=== PATIENT | female | born 1995 | race African-American/Black ===

== ENCOUNTER 2019-08-11 05:32 | Emergency (ER) | payer BC ==
[~2019-08-11] VITALS: Ht 160 cm; Wt 91.1 kg
--- NOTE | 2019-08-11 05:37 | PHYS DOC ---
Past History Past Medical History: Constipation, UTI General Adult HPI: HPI: ".. I ve been hurting since Wednesday...here Lt...it started a little high..but it more low...now...but the pain is much worse this morning...it win in my back... Patient is a 23 year old female who presents with above hx and complaints of Lt.flank and lower abd.pain. Patient denies any intake of bad food. Patient denies any trauma. Patient has a history of kidney stones were soft but there is some family history of kidney stones with parents. Patient has had history of urinary tract infections in the past. Patient has had a history of some episodes of constipation. Patient denies any sexual activity. Patient denies any history of vaginal discharge. Patient states she has had normal periods. Patient denies any history of ovarian cysts. No recent travel. No severe ill contacts. No ice immunosuppression. Patient does work in [employer] however denies any injury at work. Review of Systems: Review of Systems: Constitutional: Denies fever or chills Eyes: Denies change in visual acuity HENT: Denies nasal congestion or sore throat Respiratory: Denies cough or shortness of breath Cardiovascular: Denies chest pain or edema GI: Complains of left flank abdominal pain, nausea,. Denies vomiting, bloody stools or diarrhea : Denies dysuria Musculoskeletal: Denies back pain or joint pain Integument: Denies rash Neurologic: Denies headache, focal weakness or sensory changes Endocrine: Denies polyuria or polydipsia Lymphatic: Denies swollen glands Psychiatric: Denies depression or anxiety Heart Score: Risk Factors: Risk Factors: DM, Current or recent (<one month) smoker, HTN, HLP, family history of CAD, obesity. Risk Scores: Score 0 - 3: 2.5% MACE over next 6 weeks - Discharge Home Score 4 - 6: 20.3% MACE over next 6 weeks - Admit for Clinical Observation Score 7 - 10: 72.7% MACE over next 6 weeks - Early Invasive Strategies Family History: Family History: History of renal stones in parents. Current Medications: Current Meds: See nursing for home meds Allergies: Allergies: No known drug allergies Physical Exam: PE: Constitutional: Moderate acute distress, non-toxic appearance. [] HENT: Normocephalic, atraumatic, bilateral external ears normal, oropharynx moist, no oral exudates, nose normal. [] Eyes: PERRLA, EOMI, conjunctiva normal, no discharge. [] Neck: Normal range of motion, no tenderness, supple, no stridor. [] Cardiovascular:Heart rate regular rhythm, no murmur [] Lungs & Thorax: Bilateral breath sounds equal apex on auscultation . Abdomen: Bowel sounds decreased,, soft, left flank and mid abdomen tenderness, no masses, no pulsatile masses. Moderate distention. Patient declines rectal or pelvic exam at this time. Very mild rebound to left mid abdomen area. Obese. Skin: Warm, dry, no erythema, no rash. [] Back: No tenderness, left CVA tenderness. [] Extremities: No tenderness, no cyanosis, no clubbing, ROM intact, no edema. [] No psoas sign. Neurologic: Alert and oriented X 3, normal motor function, normal sensory function, no focal deficits noted. [] Psychologic: Affect anxious, judgement normal, mood normal. [] EKG: EKG: [] Radiology/Procedures: Radiology/Procedures: [][place] [address] IMAGING REPORT Signed PATIENT: CARLTON SYLVESTER I ACCOUNT: [id number] : 1995 LOCATION: ER AGE: 23 SEX: F EXAM STATUS: REG ER ORD. PHYSICIAN: MARILYN JOHNSTON MD REASON: pain PROCEDURE: ACUTE ABDOMEN SERIES Study: CR ACUTE ABDOMEN SERIES Indication: Pain. Comparison: None. Findings: Within normal limits cardiomediastinal silhouette and deacon. No lobar consolidation, pleural effusion or pneumothorax. Nonobstructive bowel gas pattern. Mild colonic stool burden. No free air seen under the diaphragm. Though not fully evaluated, no acute osseous abnormality is identified. Impression: No acute abnormality of the chest. Nonobstructive bowel gas pattern. Electronically signed by: KATELIN ARMENTA MD (08/11/2019 7:18 AM) [id number] DICTATED AND SIGNED BY: KATELIN ARMENTA MD DATE: 08/11/19 0718 CC: MARILYN JOHNSTON MD; KECIA ROSSI MD ~ Course & Med Decision Making: Course & Med Decision Making Pertinent Labs and Imaging studies reviewed. (See chart for details) Labs and x-rays pending at shift change. Noted on x-ray a large stool burden in the left colon. At 0730 hrs. patient reported marked improvement of her pain. Discussed options of further investigation of her left flank and abdomen pain. Will defer CT with contrast of abdomen at this time. Patient to stay on a clear fluid diet only. No milk products. If still having pain after passage of stool to return for further evaluation. Patient to follow-up primary care. Patient return if any concerns. Patient may take Tylenol and ibuprofen for pain. Patient reviewed ED work-up of her primary care. Impression: 1. Abdomen Pain- Lt. Mid Abdomen and Flank 2. Constipation 3. Mild anemia hemoglobin 11.3 4. Urine drug screen positive for methamphetamine [] Dragon Disclaimer: Dragon Disclaimer: This electronic medical record was generated, in whole or in part, using a voice recognition dictation system. Departure Departure: Disposition: 01 HOME/RESIDENCE PRIOR TO ADM Condition: STABLE Referrals: KECIA ROSSI MD (PCP) Dragon Disclaimer This chart was dictated in whole or in part using Voice Recognition software in a busy, high-work load, and often noisy Emergency Department environment. It may contain unintended and wholly unrecognized errors or omissions. Dragon Disclaimer This chart was dictated in whole or in part using Voice Recognition software in a busy, high-work load, and often noisy Emergency Department environment. It may contain unintended and wholly unrecognized errors or omissions. Dragon Disclaimer This chart was dictated in whole or in part using Voice Recognition software in a busy, high-work load, and often noisy Emergency Department environment. It may contain unintended and wholly unrecognized errors or omissions. MARILYN JOHNSTON MD Aug 11, 2019 05:37
[2019-08-11] MEDS ORDERED: MAGNESIUM HYDROXIDE 2,400 MG/30 ML ORAL.SUSP. PO ONE (06:00)
[2019-08-11 06:19] LABS: BARBITURATES NEG (NEG); BENZODIAZEPINES NEG (NEG); CANNABINOIDS NEG (NEG); COCAINE NEG (NEG); METHADONE NEG (NEG); OPIATES NEG (NEG); PHENCYCLIDINE NEG (NEG)
[2019-08-11 06:31] LABS: AMPHETAMINE/METHAMPHETAMINE POS (NEG)
[2019-08-11 06:36] LABS: BACTERIA,URINE FEW /HPF (0-FEW); BILIRUBIN,URINE NEG (NEG); CLARITY,URINE HAZY; COLOR,URINE YELLOW; GLUCOSE,URINE NEG (NEG); NITRITE,URINE NEG (NEG); RBC,URINE 0 /HPF (0-2); UROBILINOGEN,URINE 0.2 mg/dL (0.2 mg/dL)
[2019-08-11 06:37] LABS: AMORPHOUS SEDIMENT,UR PRESENT /HPF; SQUAMOUS EPITHELIAL CELL,UR MOD /LPF; YEAST,URINE PRESENT /HPF
[2019-08-11 06:45] LABS: BASO # 0.1 x10^3/uL (0.0-0.2); BASO % 1 % (0-3); EOS # 0.3 x10^3/uL (0.0-0.7); EOS % 3 % (0-3); HEMATOCRIT 39.1 % (36.0-47.0); HEMOGLOBIN 12.7 g/dL (12.0-15.5); LYMPH # 2.9 x10^3/uL (1.0-4.8); LYMPH % 25 % (24-48); MEAN CORPUSCULAR HEMOGLOBIN 26 pg (25-35); MEAN CORPUSCULAR HGB CONC 32 g/dL (31-37); MEAN CORPUSCULAR VOLUME 80 fL (79-100); MONO # 0.7 x10^3/uL (0.0-1.1); MONO % 6 % (0-9); NEUT # 7.7 x10^3uL (1.8-7.7); NEUT % 66 % (31-73); PLATELET COUNT 422 x10^3/uL (140-400); RED BLOOD COUNT 4.93 x10^6/uL (3.50-5.40); RED CELL DISTRIBUTION WIDTH 14.4 % (11.5-14.5); WHITE BLOOD COUNT 11.7 x10^3/uL (4.0-11.0)
[2019-08-11 06:51] LABS: CALCIUM 9.2 mg/dL (8.5-10.1); CREATININE 0.9 mg/dL (0.6-1.0); GFR 93.1; POTASSIUM 3.6 mmol/L (3.5-5.1)
[2019-08-11 06:57] LABS: ALBUMIN 3.5 g/dL (3.4-5.0); DIRECT BILIRUBIN 0.1 mg/dL (0.0-0.2); TOTAL BILIRUBIN 0.4 mg/dL (0.2-1.0); TOTAL PROTEIN 8.7 g/dL (6.4-8.2)
[2019-08-11] MEDS ORDERED: IV RINGERS SOLUTION,LACTATED 1,000 ML IV SCH (07:00)
[2019-08-11] MEDS ORDERED: FAMOTIDINE 20 MG/2 ML VIAL IVP ONE (07:00)
[2019-08-11] MEDS ORDERED: KETOROLAC 30 MG/ML VIAL. IVP ONE (07:00)
--- NOTE | 2019-08-11 07:20 | RAD ---
Study: CR ACUTE ABDOMEN SERIES Indication: Pain. Comparison: None. Findings: Within normal limits cardiomediastinal silhouette and deacon. No lobar consolidation, pleural effusion or pneumothorax. Nonobstructive bowel gas pattern. Mild colonic stool burden. No free air seen under the diaphragm. Though not fully evaluated, no acute osseous abnormality is identified. Impression: No acute abnormality of the chest. Nonobstructive bowel gas pattern. Electronically signed by: KATELIN ARMENTA MD (08/11/2019 7:18 AM) [id number]
[2019-08-11 07:54] VITALS: BP 122/61
== END 2019-08-11 07:57 | disposition home or self-care (01) ==
LOC: ER 05:32
DX: R10.32 Left lower quadrant pain (principal); K59.00 Constipation, unspecified; D64.9 Anemia, unspecified; F15.10 Other stimulant abuse, uncomplicated; Z87.440 Personal history of urinary (tract) infections; Z87.442 Personal history of urinary calculi
CPT/HCPCS: 36415; 74022; 80048; 80076; 80307; 81001; 81025; 83690; 85025; 85610; 85730; 96374; 96375; 99284; J1885; J3490; J7120

== ENCOUNTER 2020-01-17 12:57 | Emergency (ER) | payer BC, OTHER ==
[~2020-01-17] VITALS: Ht 160 cm; Wt 92.8 kg
[2020-01-17] MEDS ORDERED: KETOROLAC 60 MG/2 ML VIAL. IM ONE (14:45)
[2020-01-17] MEDS ORDERED: diazePAM 5 MG TABLET. PO ONE (14:45)
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
[2020-01-17] MEDS ORDERED: METH-38 PO (15:39)
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
[2020-01-17 16:03] VITALS: BP 119/71
[2020-01-18] MEDS ORDERED: HYDR-1179 PO (21:51)
== END 2020-01-17 16:03 | disposition home or self-care (01) ==
LOC: ER 12:57
DX: M54.5 Low back pain (principal); G89.11 Acute pain due to trauma; J45.909 Unspecified asthma, uncomplicated; G43.909 Migraine, unspecified, not intractable, without status migrainosus; Z87.440 Personal history of urinary (tract) infections; V43.62XA Car passenger injured in collision with other type car in traffic accident, initial encounter; Y93.89 Activity, other specified; Y92.488 Other paved roadways as the place of occurrence of the external cause; Y99.8 Other external cause status
CPT/HCPCS: 72100; 81025; 96372; 99285; J1885

== ENCOUNTER 2020-01-18 19:39 | Emergency (ER) | payer BC, OTHER ==
[~2020-01-18] VITALS: Ht 160 cm; Wt 94.4 kg
[~2020-01-18 19:39] MED LIST: METH-38 PO
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
[2020-01-18] MEDS ORDERED: ORPHENADRINE CITRATE 60 MG/2 ML VIAL. IM ONE (20:30)
[2020-01-18] MEDS ORDERED: KETOROLAC 60 MG/2 ML VIAL. IM ONE (20:30)
[2020-01-18] MEDS ORDERED: MORPHINE SULFATE 10 MG/ML SYRINGE. SQ ONE (20:30)
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
[2020-01-18] MEDS ORDERED: HYDR-1179 PO (21:51)
[2020-01-18 21:54] VITALS: BP 124/67
== END 2020-01-18 21:55 | disposition home or self-care (01) ==
LOC: ER 19:39
DX: S39.012A Strain of muscle, fascia and tendon of lower back, initial encounter (principal); S56.911A Strain of unspecified muscles, fascia and tendons at forearm level, right arm, initial encounter; S66.811A Strain of other specified muscles, fascia and tendons at wrist and hand level, right hand, initial encounter; J45.909 Unspecified asthma, uncomplicated; G43.909 Migraine, unspecified, not intractable, without status migrainosus; Z87.440 Personal history of urinary (tract) infections; V89.2XXA Person injured in unspecified motor-vehicle accident, traffic, initial encounter; Y93.89 Activity, other specified; Y92.89 Other specified places as the place of occurrence of the external cause; Y99.8 Other external cause status
CPT/HCPCS: 72131; 73080; 73090; 96372; 99284; J1885; J2270; J2360

== ENCOUNTER → 2020-03-21 | Outpatient (CLI) | payer OTHER, BC ==
[~2020-03-21] MED LIST changes: +HYDR-1179 PO
--- NOTE | 2020-03-21 18:06 | RAD ---
EXAM: Left forearm, 2 views. HISTORY: Pain. COMPARISON: None. FINDINGS: 2 views of the left forearm are obtained. There is no fracture, dislocation or subluxation. There is no lytic or sclerotic osseous lesion. There is no periosteal reaction. There is no elbow effusion. IMPRESSION: No acute osseous finding. Electronically signed by: Lashae Gomez MD (03/21/2020 6:02 PM) [facility]
== END ==
LOC: PMG 16:15
PROVIDERS: ATTEND Physician Assistant
DX: M25.522 Pain in left elbow (principal); M79.602 Pain in left arm
CPT/HCPCS: 73090

== ENCOUNTER → 2020-08-22 | Outpatient (CLI) | payer OTHER ==
--- NOTE | 2020-08-22 16:29 | RAD ---
EXAM: 2 views of the right ankle DATE: 08/22/2020 3:05 PM INDICATION: ANKLE PAIN COMPARISON: No Prior FINDINGS: No acute fracture or dislocation. Ankle mortise is congruent. Talar dome is intact. Joint spaces are preserved without significant degenerative/proliferative change. No significant soft tissue swelling. IMPRESSION: No acute fracture or dislocation. Electronically signed by: Dakota Waldrop MD (08/22/2020 4:27 PM) [id number]
== END ==
LOC: RAD 14:59
PROVIDERS: ATTEND Physician Assistant
DX: M25.571 Pain in right ankle and joints of right foot (principal)
CPT/HCPCS: 73600

== ENCOUNTER 2021-04-03 17:51 | Emergency (ER) | payer BC, OTHER ==
[~2021-04-03] VITALS: Ht 160 cm; Wt 96.4 kg
[2021-04-03 18:03] VITALS: BP 132/73
[2021-04-03 18:45] LABS: BILIRUBIN,URINE SMALL (NEG); CLARITY,URINE HAZY; COLOR,URINE YELLOW; GLUCOSE,URINE NEG (NEG)
[2021-04-03 18:46] LABS: BACTERIA,URINE FEW /HPF (0-FEW); NITRITE,URINE NEG (NEG); RBC,URINE OCC /HPF (0-2); SQUAMOUS EPITHELIAL CELL,UR MOD /LPF
--- NOTE | 2021-04-03 19:14 | PHYS DOC ---
Past History Past Medical History: Asthma, Constipation, Migraines, UTI Past Surgical History: No Surgical History Alcohol Use: None General Adult EDM: Chief Complaint: PAIN ON URINATION HPI: HPI: Patient is a [age] year old [sex] who presents with [] Review of Systems: Review of Systems: Constitutional: Denies fever or chills Eyes: Denies change in visual acuity HENT: Denies nasal congestion or sore throat Respiratory: Denies cough or shortness of breath Cardiovascular: Denies chest pain or edema GI: Denies abdominal pain, nausea, vomiting, bloody stools or diarrhea : Denies dysuria Musculoskeletal: Denies back pain or joint pain Integument: Denies rash Neurologic: Denies headache, focal weakness or sensory changes Endocrine: Denies polyuria or polydipsia Lymphatic: Denies swollen glands Psychiatric: Denies depression or anxiety Allergies: Allergies: Allergies Coded Allergies Type Severity Reaction Last Updated Verified No Known Drug Allergies 01/17/20 No Physical Exam: PE: Constitutional: Well developed, well nourished, no acute distress, non-toxic appearance. [] HENT: Normocephalic, atraumatic, bilateral external ears normal, oropharynx moist, no oral exudates, nose normal. [] Eyes: PERRLA, EOMI, conjunctiva normal, no discharge. [] Neck: Normal range of motion, no tenderness, supple, no stridor. [] Cardiovascular:Heart rate regular rhythm, no murmur [] Lungs & Thorax: Bilateral breath sounds clear to auscultation [] Abdomen: Bowel sounds normal, soft, no tenderness, no masses, no pulsatile masses. [] Skin: Warm, dry, no erythema, no rash. [] Back: No tenderness, no CVA tenderness. [] Extremities: No tenderness, no cyanosis, no clubbing, ROM intact, no edema. [] Neurologic: Alert and oriented X 3, normal motor function, normal sensory function, no focal deficits noted. [] Psychologic: Affect normal, judgement normal, mood normal. [] Current Patient Data: Labs: Laboratory Tests Test 04/03/21 18:02 Urine Collection Type Unknown Urine Color Yellow Urine Clarity Hazy Urine pH 5.5 Urine Specific [place] >=1.030 Urine Protein Trace (NEG-TRACE) Urine Glucose (UA) Neg mg/dL (NEG) Urine Ketones (Stick) >=160 mg/dL (NEG) Urine Blood Neg (NEG) Urine Nitrite Neg (NEG) Urine Bilirubin Small (NEG) Urine Urobilinogen Dipstick 1.0 mg/dL (0.2 mg/dL) Urine Leukocyte Esterase Neg (NEG) Urine RBC Occ /HPF (0-2) Urine WBC 1-4 /HPF (0-4) Urine Squamous Epithelial Cells Mod /LPF Urine Bacteria Few /HPF (0-FEW) Urine Mucus Mod /LPF Vital Signs: Vital Signs Date Time Temp Pulse Resp B/P (MAP) Pulse Ox O2 Delivery O2 Flow Rate FiO2 04/03/21 18:03 98.2 104 16 132/73 (92) 99 Room Air EKG: EKG: [] Radiology/Procedures: Radiology/Procedures: [] Heart Score: Risk Factors: Risk Factors: DM, Current or recent (<one month) smoker, HTN, HLP, family history of CAD, obesity. Risk Scores: Score 0 - 3: 2.5% MACE over next 6 weeks - Discharge Home Score 4 - 6: 20.3% MACE over next 6 weeks - Admit for Clinical Observation Score 7 - 10: 72.7% MACE over next 6 weeks - Early Invasive Strategies Course & Med Decision Making: Course & Med Decision Making Pertinent Labs and Imaging studies reviewed. (See chart for details) [] Lena Disclaimer: Lena Disclaimer: This electronic medical record was generated, in whole or in part, using a voice recognition dictation system. Departure Departure: Impression: Primary Impression: Dysuria Disposition: HOME / SELF CARE / HOMELESS Condition: STABLE Referrals: ROGELIO DE ANDA (PCP) Patient Instructions: ABCs of , Dysuria Additional Instructions: Please follow closely with your COMMUNITY ENGAGEMENT REPRESENTATIVE for further assessment and care. MARGARETH JOHNSON DO Apr 03, 2021 19:14
== END 2021-04-03 19:29 | disposition home or self-care (01) ==
LOC: ER 17:51
DX: R30.0 Dysuria (principal); J45.909 Unspecified asthma, uncomplicated
CPT/HCPCS: 81001; 99283-25